=== PATIENT | female | born 1955 | race Caucasian/White ===

== ENCOUNTER → 2017-04-13 | Day surgery (SDC) | payer OTHER ==
[~2017-04-13] VITALS: Ht 160 cm; Wt 86.6 kg
[~2017-04-13] MED LIST: ASPIRIN EC81 MG; ASPIRIN EC81 MG PO; CENTRUM COMPLE1 EACH PO; CITRACAL + D M1 EACH PO; COD LIVER OIL1 EAC1 PO; CPAP INH; GALZIN50 MG PO; INNER DEFENSE PO; MEGA BIOTIN10000 MCG PO; MOBIC15 MG PO; NON-ASPIRIN EX500 M1 PO; NORCO 5-325 MG1 TAB PO; PROBIOTIC1 EAC2 PO; PROVENTIL OR V6.7 GM INH; SINGULAIR10 MG PO; ULTRAM50 MG PO; VITAMIN C1000 M2 PO; VITAMIN D-32000 UNIT PO; ZOLOFT50 MG PO
== END | disposition disaster alternative care site (69) ==
LOC: GPOC 04-09 16:00 → GEND 08:24
PROC: 0DJD8ZZ Inspection of Lower Intestinal Tract, Via Natural or Artificial Opening Endoscopic (ICD-10-PCS; principal; 2017-04-13)
DX: Z12.11 Encounter for screening for malignant neoplasm of colon (principal); K57.30 Diverticulosis of large intestine without perforation or abscess without bleeding; E89.0 Postprocedural hypothyroidism; F32.0 Major depressive disorder, single episode, mild; Z98.51 Tubal ligation status; Z79.899 Other long term (current) drug therapy
CPT/HCPCS: J1100; J2001; J2405; J7030